=== PATIENT | female | born 1955 | race Caucasian/White ===

== ENCOUNTER → 2020-07-29 17:05 | Outpatient (CLI) | payer OTHER, SELFPAY ==
--- NOTE | ~2020-07-29 | MM_ITS ---
EXAMINATION: MM screening [facility] BI w hillary HISTORY: Screening mammogram TECHNIQUE: Craniocaudal and mediolateral oblique 3-D tomosynthesis images were obtained and synthetic 2-D images were generated. CAD analysis was submitted and interpreted. COMPARISON: 12/04/2010 bilateral digital screening mammogram BREAST PARENCHYMAL COMPOSITION: The breasts are extremely dense, which lowers the sensitivity of mamm ography. FINDINGS: There is no evidence of suspicious mass, calcification, or architectural distortion to sugg est malignancy in either breast. There has been no suspicious interval change. IMPRESSION: 1. No mammographic evidence of malignancy. 2. Recommend routine screening mammography in one year. BI-RADS Category 1: Negative Reviewed, dictated and finalized at location A. ING MANAGEMENT OFFICER
== END ==
PROVIDERS: Visit Provider Obstetrics & Gynecology
DX: Z12.31 Encounter for screening mammogram for malignant neoplasm of breast (principal)
CPT/HCPCS: 77063; 77067

== ENCOUNTER → 2020-10-01 10:48 | Outpatient (CLI) | payer OTHER, SELFPAY ==
--- NOTE | ~2020-10-01 | US_ITS ---
US retroperitoneal comp DATE: 10/01/2020 11:17 INDICATION: Renal lesion detected on CT examination performed elsewhere TECHNIQUE: Real-time imaging of the kidneys and urinary bladder COMPARISON: The referenced outside CT examination is not provided for comparison. FINDINGS: The right kidney measures 8.6 cm length, left kidney 8.8 cm. No renal mass lesion or hydron ephrosis is evident. The urinary bladder is unremarkable. IMPRESSION: No sonographic finding of mass lesion of either kidney Reviewed, dictated and finalized at Location A. Reviewed, dictated and finalized at location A.
== END ==
DX: N28.9 Disorder of kidney and ureter, unspecified (principal)
CPT/HCPCS: 76770

== ENCOUNTER → 2022-01-20 10:42 | Outpatient (CLI) | payer OTHER, SELFPAY ==
--- NOTE | ~2022-01-20 | MM_ITS ---
EXAMINATION: MM screening [facility] BI w hillary HISTORY: Screening mammogram TECHNIQUE: Craniocaudal and mediolateral oblique 3-D tomosynthesis images were obtained and synthetic 2-D images were generated. CAD analysis was submitted and interpreted. COMPARISON: 07/29/2020, 12/08/2010 BREAST PARENCHYMAL COMPOSITION: The breasts are extremely dense, which lowers the sensitivity of mamm ography. FINDINGS: There is no suspicious mass, calcification, or architectural distortion to suggest malignan cy in either breast. There has been no suspicious interval change. IMPRESSION: 1. No mammographic evidence of malignancy. 2. Recommend routine screening mammography in one year. BI-RADS Category 1: Negative Reviewed, dictated and finalized at location A.
== END ==
PROVIDERS: PCP Student in an Organized Health Care Education/Training Program; Visit Provider Obstetrics & Gynecology
DX: Z12.31 Encounter for screening mammogram for malignant neoplasm of breast (principal)
CPT/HCPCS: 77063; 77067

== ENCOUNTER → 2022-01-20 10:46 | Outpatient (CLI) | payer OTHER, SELFPAY ==
--- NOTE | ~2022-01-20 | DEXA_ITS ---
Bone Density Report Name: MAURICIO CALDERON Age: 66 Sex: Female Ethnicity: White Date of : 1955 Indication: postmenopausal osteoporosis; prior fracture; Referring Provider: Leo, Gunnar Study: Bone densitometry was performed. Exam Date: January 20, 2022 Accession number: [id number] Bone Density: Region BMD T-score Z-score Classification AP Spine (L1, L2, L3) 0.681 -3.1 -1.2 Osteoporosis Femoral Neck (Left) 0.304 -4.9 -3.3 Osteoporosis Total Hip (Left) 0.299 -5.3 -3.9 Osteoporosis World Health Organization criteria for BMD impression classify patients as: Normal (T-score at or above -1.0), Osteopenia (T-score between -1.0 and -2.5), or Osteoporosis (T-score at or below -2.5). 10-year Fracture Risk: FRAX not reported because: Some T-score for Spine Total or Hip Total or Femoral Neck at or below -2.5 Prior hip or vertebral fracture Previous Exams: Region Exam Age BMD T-score BMD Change BMD Change Date g/cm2 vs Baseline vs Previous Total Hip(Left) 01/20/2022 66 0.299 -5.3 -0.324* -0.324* 12/08/2010 55 0.622 -2.6 *Denotes significance at 95% confidence level, LSC for Total Hip = 0.027 g/cm2 Clinical Information Provided by Patient: Have had a previous hip or vertebral fracture Has had a low trauma fracture Has used the following medications: Vitamin D, Calcium Patient maximum height was 67 Menopause Age: 55 No regular weight bearing exercise Does not regularly consume dairy products Onset of menses at age 13 Number of children 2 Impression: The patient has established osteoporosis, based on the Left Total Hip T-score and the existence of a prior fracture. The patient has risk factors, including: previous fracture. The BMD for the Total Hip(Left) decreased, changing by -0.324 since the last DXA exam. Discussion: HIGH RISK OF FRACTURE. BONE DENSITY IS UNDESIRABLY LOW AT ONE OR MORE SKELETAL SITES, CONSISTENT WITH POSTMENOPAUSAL OSTEOPOROSIS. This patient's lowest T-score, in a patient who has previously fractured, meets the World Health Organization's (WHO) criteria for severe osteoporosis. In untreated patients, the risk of osteoporotic fracture increases approximately two-fold for each 1.0 SD decrease in T-score. Low bone density is not the only risk factor for fracture; also consider factors such as patient's age, frailty or poor health, risk of falling, risk of injury, previous osteoporotic fracture, family history of osteoporosis, cigarette smoking, low body weight, etc. Not everyone with low bone mineral density has osteoporosis; osteomala
== END ==
PROVIDERS: PCP Obstetrics & Gynecology; Visit Provider Student in an Organized Health Care Education/Training Program
DX: Z78.0 Asymptomatic menopausal state (principal); M81.0 Age-related osteoporosis without current pathological fracture
CPT/HCPCS: 77080

== ENCOUNTER → 2023-04-30 11:27 | Outpatient (CLI) | payer OTHER, SELFPAY ==
--- NOTE | ~2023-04-30 | MM_ITS ---
EXAMINATION: MM screening [facility] BI w hillary HISTORY: Screening mammogram TECHNIQUE: Craniocaudal and mediolateral oblique 3-D tomosynthesis images were obtained and synthetic 2-D images were generated. CAD analysis was submitted and interpreted. COMPARISON: 01/20/2022, 07/29/2020, 12/08/2010 BREAST PARENCHYMAL COMPOSITION: The breasts are heterogeneously dense, which may obscure small masses . FINDINGS: No suspicious mass, calcification, or architectural distortion are identified in either vinicius ast to suggest malignancy. There has been no suspicious interval change. IMPRESSION: 1. No mammographic evidence of malignancy. 2. Recommend routine screening mammography in one year. BI-RADS Category 1: Negative Reviewed, dictated and finalized at location A. IFIED PERSONAL FINANCE COUNSELOR
== END ==
PROVIDERS: PCP Student in an Organized Health Care Education/Training Program; Visit Provider Student in an Organized Health Care Education/Training Program
DX: Z12.31 Encounter for screening mammogram for malignant neoplasm of breast (principal); G35 Multiple sclerosis; N18.31 Chronic kidney disease, stage 3a; M81.0 Age-related osteoporosis without current pathological fracture; E78.5 Hyperlipidemia, unspecified
CPT/HCPCS: 77063; 77067

== ENCOUNTER 2024-05-04 15:49 | Outpatient (CLI) | payer OTHER, SELFPAY ==
--- NOTE | ~2024-05-04 | MM_ITS ---
EXAMINATION: MM screening [facility]ash[facility] BI w hillary HISTORY: Screening mammogram TECHNIQUE: Craniocaudal and mediolateral oblique 3-D tomosynthesis images were obtained and synthetic 2-D images were generated. CAD analysis was submitted and interpreted. COMPARISON: 04/30/2023, 01/20/2022, 07/29/2020 BREAST PARENCHYMAL COMPOSITION:Dense: The breasts are extremely dense, which lowers the sensitivity o f mammography. FINDINGS: No suspicious mass, calcification, or architectural distortion are identified in either vinicius ast to suggest malignancy. There has been no suspicious interval change. IMPRESSION: No mammographic evidence of malignancy. Recommend routine screening mammography in one year. BI-RADS Category 1: Negative Reviewed, dictated and finalized at location . OR LOAN PROCESSOR
== END 2024-05-04 15:50 | disposition home or self-care (01) ==
PROVIDERS: PCP Student in an Organized Health Care Education/Training Program; Visit Provider Student in an Organized Health Care Education/Training Program
DX: Z12.31 Encounter for screening mammogram for malignant neoplasm of breast (principal)
CPT/HCPCS: 77063; 77067

== ENCOUNTER 2025-02-02 07:47 | Outpatient (CLI) | payer OTHER, SELFPAY ==
--- NOTE | ~2025-02-02 | DEXA_ITS ---
Bone Density Report Name: MAURICIO CALDERON Age: 69 Sex: Female Ethnicity: White Date of : 1955 Indication: postmenopausal osteoporosis; height loss; prior fracture; Referring Provider: KAREEN, JERSON Study: Bone densitometry was performed. Exam Date: February 02, 2025 Accession number: [id number] Bone Density: Region BMD T-score Z-score Classification AP Spine(L3, L4) 0.650 -4.1 -1.8 Osteoporosis Femoral Neck (Left) 0.402 -4.0 -2.2 Osteoporosis Total Hip (Left) 0.400 -4.4 -2.9 Osteoporosis World Health Organization criteria for BMD impression classify patients as: Normal (T-score at or above -1.0), Osteopenia (T-score between -1.0 and -2.5), or Osteoporosis (T-score at or below -2.5). 10-year Fracture Risk: FRAX not reported because: Some T-score for Spine Total or Hip Total or Femoral Neck at or below -2.5 Prior hip or vertebral fracture Previous Exams: Region Exam Age BMD T-score BMD Change BMD Change Date g/cm2 vs Baseline vs Previous Total Hip(Left) 02/02/2025 69 0.400 -4.4 0.101 (33.8%)# 0.101 (33.8%)# 01/20/2022 66 0.299 -5.3 *Denotes significance at 95% confidence level, LSC for Total Hip = 0.027 g/cm2 # Denotes dissimilar scan types or analysis methods Clinical Information Provided by Patient: Have had a previous hip or vertebral fracture Has had a low trauma fracture Has used the following medications: Vitamin D, Calcium Patient maximum height was 67 Menopause Age: 55 Onset of menses at age 13 Number of children 2 Impression: The patient has established osteoporosis, based on the Left Total Hip T-score and the existence of a prior fracture. The patient has risk factors, including: previous fracture. No significant bone loss was observed. Discussion: HIGH RISK OF FRACTURE. BONE DENSITY IS UNDESIRABLY LOW AT ONE OR MORE SKELETAL SITES, CONSISTENT WITH POSTMENOPAUSAL OSTEOPOROSIS. This patient's lowest T-score, in a patient who has previously fractured, meets the World Health Organization's (WHO) criteria for severe osteoporosis. In untreated patients, the risk of osteoporotic fracture increases approximately two-fold for each 1.0 SD decrease in T-score. Low bone density is not the only risk factor for fracture; also consider factors such as patient's age, frailty or poor health, risk of falling, risk of injury, previous osteoporotic fracture, family history of osteoporosis, cigarette smoking, low body weight, etc. Not everyone with low bone mineral density has osteoporosis; osteomalacia and other metabolic bone disorders should also be considered. Patients who have osteoporosis should be evaluated for specific diseases and conditions (secondary causes) that may cause or contribute to bone loss. The [place] [employer] Endocrinologists (AACE) and National Osteoporosis Foundation (NOF) recommend pharmacologic intervention for all postmenopausal women with a previous hip or vertebral fracture and a T-score in this range. The patient should follow a healthful lifestyle (good nutrition with adequate calcium and vitamin D, and appropriate weight-bearing exercise). Follow-Up: Consider a repeat BMD and Vertebral Fracture Assessment (VFA) exam in 2 years or sooner if medically necessary, to reassess this patient's status. Reported by: ART on 02/02/2025 8:33:00 AM. Reviewed, dictated and finalized at location A.
--- OUTSIDE RECORDS SUMMARY | 2025-02-02 07:58 | XMS_ITS | Clinical Summary ---
[facility] [address] [place] [address] Care Team Providers Care Briar Shop Supervisor Name Role Phone Gunnar Bailey DO Primary Care Provide r Allergies Active Allergy Reactions Criticality Noted Date Comments Amoxicillin Rash Medium 07/16/2017 Cephalexin Unknown Low Cephapirin Unknown Low Chocolate Flavor Rash Medium 07/23/2017 Migraine Ciprofloxacin Unknown Low Codeine Unknown Low Dimethyl Fumarate Nausea & Vomiting Low 07/16/2017 HAIR FALL OUT Erythromycin Rash Medium Reaction: RASH, , Glatiramer Other (See comments) Low 07/16/2017 SITE REACTION SITE REACTION Glatiramer (Copolymer 1) Other (See comments) Low 07/16/2017 SITE REACTION Ibuprofen Rash Medium 05/21/2017 Levofloxacin Dizziness Low 07/16/2017 EXTREMELY DIZZY Cecil Swelling Medium 07/23/2017 And blisters in mouth Naproxen Rash Medium 05/21/2017 Nitrofurantoin Other (See comments),Cough,Di zziness,Headache Low 03/07/2023 Took a month to feel better after taking last time Nsaids (Non-Steroidal Anti-Inflammatory Drug) Rash Medium Reaction: RASH, , Nut Flavor Swelling Medium 07/16/2017 WALNUTS, CASHEWS, PECANS TONGUE SWELLING AND BLISTERS Nuts Swelling Medium 07/16/2017 WALNUTS, CASHEWS, PECANS TONGUE SWELLING AND BLISTERS WALNUTS, CASHEWS, PECANS TONGUE SWELLING AND BLISTERS Penicillins Rash Medium Reaction: RASH, , Prednisone Other (See comments) Low Agitation / jittery/ intollerance Sulfa (Sulfonamide Antibiotics) Rash Medium Reaction: RASH, , Medications cyanocobalamin, vitamin B-12, (VITAMIN B-12) 1,000 mcg/mL drops takes daily 0 0 11/19/2013 Active temazepam (RESTORIL) 15 mg capsule take 1 capsule by oral route every day at bedtime as needed 0 0 08/13/2014 Active cetirizine (ZyrTEC) 10 mg capsule take one tablet daily 0 0 11/24/2014 Active calcium carbonate (CALCIUM 500) 1,250 MG (500 mg of elemental calcium) tablet takes daily 0 0 11/19/2013 Active b complex vitamins tablet Take 1 tablet by mouth daily Active cholecalciferol , vitamin D3, 2,000 unit/drop drops Take 2,000 Units by mouth daily. Active rizatriptan (MAXALT) 10 mg tabletIndicatio ns:Migraine Take 1 tablet (10 mg total) by mouth daily as needed for migraine Active CAT'S CLAW, UNCARIA TOMENTOSA, ORAL Take by mouth. Active milk thistle 150 mg capsule Take by mouth. Active INOSITOL, BULK, MISC Active acidophilus-pec tin, citrus 100 million cell-10 mg capsule Take by mouth. Active zinc gluconate 50 mg tabletIndicatio ns:Taking 3 times a week Take 1 tablet (50 mg total) by mouth daily Active baclofen (LIORESAL) 10 mg tablet Take 2 tablets (20 mg total) by mouth 4 (four) times a day 720 tablet 3 12/23/2024 Active Active Problems Problem Noted Date Diagnosed Date Screening for colon cancer 03/24/2018 Overview (03/24/2018): Added automatically from request for surgery [id number] Muscle spasticity 12/04/2016 Arthritis of knee 05/24/2016 Pain of foot 09/12/2015 Foot-drop 04/16/2014 Overview (09/21/2016): Footdrop Multiple sclerosis 04/16/2014 Overview (09/21/2016): Multiple sclerosis Lumbar radiculopathy 11/19/2013 Overview (09/21/2016): Lumbar radiculopathy Lower limb spasticity 11/19/2013 Overview (09/21/2016): Lower limb spasticity Encounters Date Type Department Care Team Description 12/23/2024 11:00 AM CDT Office Visit [facility] [address] [address] Rema Lima MD Multiple sclerosis (HCC) (Primary Dx); Muscle spasticity from Last 3 Months Surgical History Surgery Date Site/Laterality Comments SPINAL FUSION spinal fusion SPINAL FUSION 06/17/2009 - 06/16/2010 spinal fusion OTHER SURGICAL HISTORY gallbladder disease: Gallbladder surgery LUMBAR PUNCTURE WO INJECTION, DIAGNOSTIC 12/15/2013 N/A CHOLECYSTECTOMY HIP SURGERY w/harware COLONOSCOPY last screening 2012 Medical History Medical History Date Comments Hx Other Medical gallbladder dis ease Hx Other Medical Stress fracture s right foot; Comments: [facility] 11/19/2013 - Hx Other Medical Right plantar n europathy; Comments: [facility] 11/19/2013 - MS (multiple sclerosis) Family History Medical History Relation Name Comments Arthritis Father arthritis; Heart disease Father Heart disease; Other Father malignant neopl astic disease; Heart disease Mother Heart disease; Diabetes Sister 1 Diabetes mellit us; Heart disease Sister 2 Heart disease; Relation Name Status Comments Father Mother Sister 1 Sister 2 Social History Tobacco Use Types Packs/Day Years Used Date Smoking Tobacco: Never Smokeless Tobacco: Never Alcohol Use Standard Drinks/Week Comments Yes 0 (1 standard drink = 0.6 oz pur e alcohol) rare AUDIT-C Answer Date Recorded Frequency of Alcohol Consumption Not on file 12/23/2024 Q2: How many drinks containi ng alcohol do you have on a typical day when you are drinking? Patient does not drink Frequency of Binge Drinking Not on file 02/2025 Comments Unknown Sex and Gender Information Value Date Recorded Sex Assigned at Not on file Legal Sex Female 1:54 AM INTEGRATION LEAD Gender Identity Not on file Sexual Orientation Not on file Obstetrics History Last Filed Vital Signs Vital Sign Reading Time Taken Comments Blood Pressure 142/80 12/23/2024 10:46 AM CDT Pulse 103 12/23/2024 10:46 AM CDT Temperature - - Respiratory Rate 16 12/23/2024 10:46 AM CDT Oxygen Saturation 94% 12/23/2024 10:46 AM CDT Inhaled Oxygen Concentration - - Weight 48.1 kg (106 lb) 12/23/2024 10:46 AM CDT Height 170.2 cm (5' 7.01) 12/23/2024 10:46 AM C DT Body Mass Index 16.6 12/23/2024 10:46 AM CDT Plan of Treatment Health Maintenance Due Date Last Done Comments Depression Screening 1955 Fall Risk Assessment 1955 Hepatitis C Screening 1955 DTaP/Tdap/Td Vaccine (1 - Tdap) 1965 Hepatitis B Screening 1972 Pneumococcal vaccine 65+ (1 of 1 - PCV) 2004 Zoster Vaccine (1 of 2) 2004 Well Visit 65+ 2019 Breast Cancer Screening-Mammogram 02/05/2020 019, 05/29/2014 Osteoporosis Screening-Bone Density Scan 01/21/2024 01/20/2022 Influenza Vaccine (#1) 2025 Colon Cancer Screening-Colonoscopy 04/23/20282017 Colon Cancer Screening-CT Colonography Discontinued Colon Cancer Screening-DNA Stool Discontinued 04/23/20 Colon Cancer Screening-FIT Discontinued 04/23/2018 Colon Cancer Screening-Sigmoidoscopy Discontinued 12/2017 Procedures Procedure Name Priority Date/Time Associated Diagnosis Comments SCREENING MAMMOGRAM BILATERAL W MAURILIO 02/04/2019 4:32 PM CDT COLONOSCOPY 04/23/2018 10:33 AM INTEGRATION LEAD from Last 3 Months or Most Recently Relevant to Health Maintenance Results * Screening Mammogram Bilateral W Maurilio (02/04/2019 4:32 PM CDT) Anatomical Region Laterality Modality Breast Bilateral Mammography 02/04/2019 4:49 PM CDT Narrative 02/04/2019 5:15 PM CDT Patient Name: ZORA CALDERON Dr: Rocael Peacock MD D.O.B: 1955 Exam Date: 02/04/19 1632 Age: 63 Sex: Female MR#: [id number] Loc: RADIOLOGY REPORT Order #[id number] [facility] Alma Bilat Screening 3D Signed - MG BILATERAL DIGITAL SCREENING MAMMOGRAM 3D/2D WITH MEDIOLATERAL OBLIQUE CRANIOCAUDAL: 02/04/2019 The study was acquired using full field digital technology and interpreted from soft copy. 2D digital mammographic views, as well as 3D digital tomosynthesis were performed in the CC and MLO projections. CLINICAL: Routine mammogram. Denies any problems today. No personal history of breast cancer. No family history of breast cancer. COMPARISONS: Comparison is made to exams dated: 05/29/2014 mammogram - [facility] and 10/06/2008 mammogram - [facility]. BREAST TISSUE: The tissue of both breasts is extremely dense, which lowers the sensitivity of mammography. FINDINGS: No significant masses, calcifications, or other findings are seen in either breast. There has been no significant interval change. IMPRESSION: BI-RAD 1 NEGATIVE There is no mammographic evidence of malignancy. A 1 year screening mammogram is recommended. The patient has been or will be contacted. We recommend annual screening mammography for women at average risk of breast cancer beginning at age 40, based on guidelines of the [place] [employer] (ACR Practice Parameter for the Performance of Screening and Diagnostic Mammography) and [place] [employer]. For women with an elevated risk of breast cancer, please refer to the ACR Practice Parameter for specific screening recommendations. The patient will be entered into a reminder system with a target due date of 1 year for her next screening exam. Electronically signed by: Kevin Swanson M.D., md/anarad:02/04/2019 17:15:17 Supervisor Partial Denture Department: Shabnam CROCKER)(Clair), [facility] letter sent: Normal Exam Reading location: BI-RADS: 1 Negative REPORT ELECTRONICALLY SIGNED IN OTHER VENDOR SYSTEM Resulting Agency Comment O Procedure Note Kevin Swansno MD - 02/04/2019 Patient Name: ZORA CALDERON Dr: Rocael Peacock MD D.O.B: 1955 Exam Date: 02/04/19 1632 Age: 63 Sex: Female MR#: [id number] Loc: RADIOLOGY REPORT Order #[id number] [facility] Alma Bilat Screening 3D Signed - MG BILATERAL DIGITAL SCREENING MAMMOGRAM 3D/2D WITH MEDIOLATERAL OBLIQUE CRANIOCAUDAL: 02/04/2019 The study was acquired using full field digital technology andinterpreted from soft copy. 2D digital mammographic views, as well as 3D digital tomosynthesis were performed in the CC and MLO projections. CLINICAL: Routine mammogram. Denies any problems today. No personalhistory of breast cancer. No family history of breast cancer. COMPARISONS: Comparison is made to exams dated: 05/29/2014 [facility]ogram [facility] and 10/06/2008 mammogram - [facility]. BREAST TISSUE: The tissue of both breasts is extremely dense, whichlowers the sensitivity of mammography. FINDINGS: No significant masses, calcifications, or other findings areseen in either breast. There has been no significant interval change. IMPRESSION: BI-RAD 1 NEGATIVE There is no mammographic evidence of malignancy. A 1 year screeningmammogram is recommended. The patient has been or will be contacted. We recommend annual screening mammography for women at average risk ofbreast cancer beginning at age 40, based on guidelines of the [place] [employer] (ACR Practice Parameter for the Performance of Screening and Diagnostic Mammography) and [place] [employer]. For women with an elevated risk of breast cancer, pleaserefer to the ACR Practice Parameter for specific screening recommendations. The patient will be entered into a reminder system with a target due dateof 1 year for her next screening exam. Electronically signed by: Kevin Swanson M.D., md/ana rosa:02/04/2019 17:15:17 Supervisor Partial Denture Department: Shabnam Grayson RT(R)(M), [facility] letter sent: Normal Exam Reading location: BI-RADS: 1 Negative REPORT ELECTRONICALLY SIGNED IN OTHER VENDOR SYSTEM us Rocael Peacock MD IMG MAMMO PROCEDURES Final R esult * COLONOSCOPY (04/23/2018 10:33 AM INTEGRATION LEAD) Anatomical Region Laterality Modality Other Narrative Procedure Note Francesco Hopson MD - 04/23/2018 10:33 AM CST [facility] Endoscopy Lab Patient Name: Zora Calderon Procedure Date: 04/23/2018 10:33 AM Date of : 1955 Admit Type: Outpatient Age: 62 Gender: Female Note Status: Finalized Attending MD: Francesco Hopson MD Procedure Date: 04/23/2018 Procedure: Colonoscopy Indications: Screening for colorectal malignant neoplasm, Last colonoscopy: date unknown (unable to locate last colonoscopy report), Last colonoscopy 10 years ago Providers: Francesco Hopson MD, Mauricio Chow M.D. (Anesthesia Staff), Rolly Peterson RN Referring MD: Abdoulaye Ybarra MD Medicines: Monitored Anesthesia Care Complications: No immediate complications. Estimated Blood Loss: Estimated blood loss: none. Procedure: Pre-Anesthesia Assessment: - Airway Examination: normal oropharyngeal airwayand neck mobility. - Respiratory Examination: clear to auscultation. - ASA Grade Assessment: III - A patient with severe systemic disease. - After reviewing the risks and benefits, thepatient was deemed in satisfactory condition to undergo the procedure. - The risks and benefits of the procedure and the sedation options and risks were discussed with the patient. All questions were answered and informed consent was obtained. After I obtained informed consent, the scope waspassed under direct vision. Throughout the procedure, the patient's blood pressure, pulse, and oxygensaturations were monitored continuously. The scope was passedunder direct vision. The Colonoscope was introducedthrough the anus and advanced to the the cecum, identifiedby the appendiceal orifice, ileocecal valve andpalpation. The colonoscopy was performed with ease. The patient tolerated the procedure well. The quality of thebowel preparation was evaluated using the BBPS (BostonBowel Preparation Scale) with scores of: Right Colon = 2 (minor amount of residual staining, small fragmentsof stool and/or opaque liquid, but mucosa seen well), Transverse Colon = 2 (minor amount of residual staining, small fragments of stool and/or opaque liquid, but mucosa seen well) and Left Colon = 1 (portion of mucosa seen, but other areas not wellseen due to staining, residual stool and/or opaqueliquid). The total BBPS score equals 5. The quality of thebowel preparation was fair. The bowel preparation used was SUPREP. Findings: The perianal and digital rectal examinations were normal. Three sessile polyps were found in the ascending colon. The polypswere 2 to 3 mm in size. These polyps were removed with a cold biopsyforceps. Resection and retrieval were complete. Estimated blood loss: none. The retroflexed view of the distal rectum and anal verge was normaland showed no anal or rectal abnormalities. Impression: - Three 2 to 3 mm polyps in the ascending colon. Resected and retrieved. - The distal rectum and anal verge are normal on retroflexion view. Recommendation: - Discharge patient to home (ambulatory). - Await pathology results. - Repeat colonoscopy in 3 years for surveillance. - High fiber diet. Procedure Code(s): --- Professional --- 87437, Colonoscopy, flexible; with biopsy, single or multiple Diagnosis Code(s): --- Professional --- Z12.11, Encounter for screening for malignantneoplasm of colon D12.2, Benign neoplasm of ascending colon CPT copyright 2017 [employer] [employer]. All rights reserved. The codes documented in this report are preliminary and upon lather apprentice reviewmay be revised to meet current compliance requirements. Electronically signed by Francesco Hopson MD Francesco Hopson MD 04/23/2018 11:06:19 AM Number of Addenda: 0 Note Initiated On: 04/23/2018 10:33 AM Francesco Hopson MD ENDOSCOPY PROCEDURES Final Resul t from Last 3 Months or Most Recently Relevant to Health Maintenance Insurance [facility] Member Subscriber Plan / Payer (Ef fective 2017-Present) Name:Zora Calderon Relation to Subscriber:Self Name:Zora Calderon Payer ID:[id number] (NAIC) Type:MEDICARE RISK OTHER Address: [address] CARE OTHER [facility] Care Teams Briar Shop Supervisor Relationship Specialty Start Date End Date Gunnar Bailey DO [address] [place] [address] PCP - General Family Medicine 12/23/23
--- OUTSIDE RECORDS SUMMARY | 2025-02-02 07:58 | XMS_ITS | Clinical Summary ---
Author Organization [facility] Address [address] [place] [address] Phone Care Team Providers Care Programming Engineer Name Role Phone Unavailable Primary Care Provider Unavailabl e Allergies Active Allergy Reactions Criticality Noted Date Comments Amoxicillin Rash Low 07/16/2017 Cephalexin Nausea and Vomiting Low 07/16/2017 Chocolate Flavor Rash Low 07/23/2017 Dimethyl Fumarate Nausea and Vomiting Low 8 Erythromycin Rash Low 07/16/2017 Glatiramer (Copolymer 1) Other (See Comments) 0 07/16/2017 SITE REACTION Levofloxacin Dizziness Low 07/16/2017 Cecil Swelling Low 07/23/2017 Nsaids (Non-Steroidal Anti-Inflammatory Drug) Rash Low 07/16/2017 Nut Flavor Swelling Low 07/16/2017 Penicillins Rash Low 07/16/2017 Sulfa (Sulfonamide Antibiotics) Rash Low 07/16/2017 Medications baclofen (LIORESAL) 20 mg tablet Take by mouth 4 times daily. Active temazepam (RESTORIL) 15 mg capsule Take 15 mg by mouth nightly as needed for Insomnia. Active rizatriptan (MAXALT) 10 mg Tablet Take 10 mg by mouth every 2 hours as needed for Migraine may repeat in 2 hours; max dose 30mg in 24 hours . Active Active Problems Problem Noted Date Diagnosed Date Abnormal involuntary movement 07/23/2017 Relapsing remitting multiple sclerosis 8 Social History Tobacco Use Types Packs/Day Years Used Date Smoking Tobacco: Never Smokeless Tobacco: Never Alcohol Use Standard Drinks/Week Comments Yes 0 (1 standard drink = 0.6 oz pur e alcohol) RARE Comments No Sex and Gender Information Value Date Recorded Sex Assigned at Not on file Legal Sex Female 10:33 AM MATE RELIEF Gender Identity Not on file Sexual Orientation Not on file Last Filed Vital Signs Vital Sign Reading Time Taken Comments Blood Pressure 120/52 07/23/2017 10:29 AM MATE RELIEF Pulse 64 07/23/2017 10:29 AM MATE RELIEF Temperature 36.8 C (98.3 F) 07/23/2017 10:29 AM MATE RELIEF Respiratory Rate 14 07/23/2017 10:2 9 AM MATE RELIEF Oxygen Saturation 100% 07/23/2017 10: 29 AM MATE RELIEF Inhaled Oxygen Concentration - - Weight 48.4 kg (106 lb 12.8 oz) 07/23/2017 8:12 AM MATE RELIEF Height 170.2 cm (5' 7) 07/23/2017 8:12 AM MATE RELIEF Body Mass Index 16.73 07/23/2017 8:12 AM MATE RELIEF Plan of Treatment Health Maintenance Due Date Last Done Comments DTAP/TDAP/TD VACCINES (1 - Tdap) 1973 BREAST CANCER SCREENING 1994 COLORECTAL SCREENING 1999 Colorectal Cancer Screening 1999 FIT-DNA Q 3 years 1999 FIT/FOBT Q 1 year 1999 Flex Sig/CT Colonography Q 5 years 1999 PNEUMOCOCCAL VACCINE 50+ YEARS (1 of 1 - PCV) 05/27/20 04 ZOSTER VACCINE (1 of 2) 2004 OSTEOPOROSIS SCREENING 2019 INFLUENZA VACCINE (#1) 2025 RSV VACCINE (60+ or ) (1 - 1-dose 75+ series) 2029 Medical Devices Implanted Type Area Dramatic Agent Device Identifier Shelf Expiration Date Model / Serial / Lot Three Pins Right: Hip Four Pins Back [place] [facility] [place] [address] [place] [id number] [facility] Member Subscriber Plan / Payer (Ef fective 2020-Present) Name:Zora Burkett Relation to Subscriber:Spouse Name:TERESITA BURKETT Date of :1955 (Home) Address: [address] [place], [place] [address] [place] [id number] Payer ID:Not on file Group ID:[id number] Type:Practitioner Only Address: [address] [place] [address] Advance Directives For more information, please contact: [phone] * Full Code (Latest Code Status on File) Date Activated Date Inactivated Comments 07/23/2017 10:30 AM 07/23/2017 7:41 PM * Full Code Date Activated Date Inactivated Comments 07/23/2017 8:53 AM 07/23/2017 10:30 AM * Full Code Date Activated Date Inactivated Comments 07/23/2017 7:56 AM 07/23/2017 8:53 AM
== END 2025-02-02 07:48 | disposition home or self-care (01) ==
PROVIDERS: PCP Student in an Organized Health Care Education/Training Program; Visit Provider Student in an Organized Health Care Education/Training Program
DX: M81.0 Age-related osteoporosis without current pathological fracture (principal)
CPT/HCPCS: 77080

== ENCOUNTER 2025-05-06 10:53 | Outpatient (CLI) | payer OTHER, SELFPAY ==
--- NOTE | ~2025-05-06 | MM_ITS ---
EXAMINATION: MM screening prashanth BI w hillary HISTORY: Screening TECHNIQUE: Craniocaudal and mediolateral oblique 3-D tomosynthesis images were obtained and synthetic 2-D images were generated. CAD analysis was submitted and interpreted. COMPARISON: Comparison to multiple prior studies sequentially, with oldest reviewed study dated , 12/08/2010 BREAST PARENCHYMAL COMPOSITION: Dense: The breasts are extremely dense, which lowers the sensitivity of mammography. FINDINGS: There is no evidence of suspicious mass, calcification, or architectural distortion to suggest malignancy in either breast. IMPRESSION: 1. No mammographic evidence of malignancy. 2. Recommend routine screening mammography in one year. BI-RADS Category 1: Negative Reviewed, dictated and finalized at location B. TION COORDINATOR
== END 2025-05-06 10:54 | disposition home or self-care (01) ==
LOC: MICIMG 10:54
PROVIDERS: PCP Student in an Organized Health Care Education/Training Program; Visit Provider Student in an Organized Health Care Education/Training Program
DX: Z12.31 Encounter for screening mammogram for malignant neoplasm of breast (principal)
CPT/HCPCS: 77063; 77067